=== PATIENT | male | born 1945 ===

== ENCOUNTER 2022-07-10 07:46 | Day surgery (SDC) | payer MEDICARE, OTHER ==
[~2022-07-10] VITALS: Ht 172.7 cm; Wt 83.8 kg
[2022-07-10 08:55] VITALS: BP 154/70; PULSE 71; TEMP 98.2
[2022-07-10] MEDS ORDERED: NORVASC 10MG10 MG PO (09:03)
[2022-07-10] MEDS ORDERED: SYNTHROID0.05 MG/TA PO (09:05)
[2022-07-10] MEDS ORDERED: ZESTRIL40 MG PO (09:05)
[2022-07-10] MEDS ORDERED: ZOCOR 40MG40 MG PO (09:06)
[2022-07-10] MEDS ORDERED: MAXZIDE-25MG TA1 TAB PO (09:09)
[2022-07-10] MEDS ORDERED: COREG 3.123.125 MG/T PO (09:10)
[2022-07-10] MEDS ORDERED: K-TAB20 PO (09:11)
[2022-07-10] MEDS ORDERED: VITAMIN E 400 U4001 PO (09:12)
[2022-07-10] MEDS ORDERED: ASPIRIN E.C. 8181 MG PO (09:15)
[2022-07-10] MEDS ORDERED: ZYRTEC 10MG10 MG PO (09:16)
[2022-07-10] MEDS ORDERED: OCUVITE BLUE L1 EACH PO (09:19)
--- NOTE | 2022-07-10 09:59 | NUR ---
Initial visit; Patient and his thanked [employer] Machine Operator for looking in on Russel, visiting with them about their pete and how they both became Evangelical. Paradichlorobenz[employer] Machine Operator spoke briefly about her love for her protestant and the Liturgy it uses. Paradichlorobenzene Machine Operator offered Prayer for Russel and his and Physician and everyone who is working with Russel to be blessed and a rapid and thorough healing for Russel.
[2022-07-10] MEDS ORDERED: NORCO 325 MG-51 TAB PO (10:23)
[2022-07-10 13:20] VITALS: BP 120/67; PULSE 76; TEMP 97.2
--- NOTE | 2022-07-10 13:20 | NUR ---
PT TO BAY 1 PER CART FROM PACU. REPORT RECEIVED. VS OBTAINED. CALL LIGHT WITHIN REACH. PT TOLERATING WATER WITHOUT DIFFICULTY. DENIES ANY NEEDS .
[2022-07-10 13:35] VITALS: BP 137/72; PULSE 78
--- NOTE | 2022-07-10 13:35 | NUR ---
PT TOLERATING JUICE AND PUDDING. DENIES ANY OTHER NEEDS AT THIS TIME.
[2022-07-10 13:50] VITALS: BP 134/73; PULSE 76
[2022-07-10 14:05] VITALS: BP 129/68; PULSE 77
--- NOTE | 2022-07-10 14:45 | NUR ---
1415-IV DC'D AT THIS TIME. 1430-DISCHARGE EDUCATION COMPLETED WITH PT AND HIS . VERBALIZED UNDERSTANDING OF HOME AND FOLLOW UP CARE. ALL QUESTIONS ANSWERED. DISCHARGE PAPERWORK GIVEN TO PT. 1445-PT OFF UNIT PER WHEELCHAIR. PT DISCHARGED TO HOME WITH PER PERSONAL VEHICLE.
== END 2022-07-10 14:45 | disposition home or self-care (01) ==
LOC: SDCO 07:46
DX: K40.90 Unilateral inguinal hernia, without obstruction or gangrene, not specified as recurrent (principal); E11.9 Type 2 diabetes mellitus without complications; Z86.79 Personal history of other diseases of the circulatory system; Z79.4 Long term (current) use of insulin
CPT/HCPCS: C1781; J0690; J1100; J1885; J2405; J2704; J3010; J7030